=== PATIENT | female | born 1965 | race Caucasian/White ===

== ENCOUNTER → 2019-09-18 08:14 | Outpatient (BNVA) | payer MEDICAID, SELFPAY | PROVIDERS: PCP Family Medicine; Visit Provider Social Worker | DX: F43.12 Post-traumatic stress disorder, chronic (principal) | CPT/HCPCS: 90791 ==

== ENCOUNTER → 2020-03-27 08:57 | Outpatient (BNVA) | payer MEDICAID, SELFPAY | PROVIDERS: PCP Family Medicine; Visit Provider Psychiatry & Neurology Psychiatry | DX: F43.10 Post-traumatic stress disorder, unspecified (principal); F32.9 Major depressive disorder, single episode, unspecified; F41.1 Generalized anxiety disorder | CPT/HCPCS: 80061; 83036; 90792 ==

== ENCOUNTER → 2020-04-25 11:00 | Outpatient (BNVA) | payer MEDICAID, SELFPAY ==
[2020-03-28 09:31] VITALS: BP 110/72; BMI 19.3
== END ==
PROVIDERS: Visit Provider Psychiatry & Neurology Psychiatry
DX: F32.9 Major depressive disorder, single episode, unspecified (principal); F43.10 Post-traumatic stress disorder, unspecified; F41.1 Generalized anxiety disorder
CPT/HCPCS: 99213

== ENCOUNTER → 2020-07-17 12:33 | Outpatient (BNVA) | payer MEDICAID, SELFPAY ==
[2020-05-30 13:41] VITALS: BP 110/72; BMI 19.3
== END ==
PROVIDERS: Visit Provider Psychiatry & Neurology Psychiatry
DX: F32.9 Major depressive disorder, single episode, unspecified (principal); F43.10 Post-traumatic stress disorder, unspecified; F41.1 Generalized anxiety disorder
CPT/HCPCS: 99214

== ENCOUNTER → 2020-09-25 07:23 | Outpatient (BNVA) | payer MEDICAID, SELFPAY ==
[2020-05-30 13:41] VITALS: BP 110/72; BMI 19.3
== END ==
PROVIDERS: Visit Provider Psychiatry & Neurology Psychiatry
DX: F41.1 Generalized anxiety disorder (principal); F43.10 Post-traumatic stress disorder, unspecified; F32.9 Major depressive disorder, single episode, unspecified
CPT/HCPCS: 99214

== ENCOUNTER 2020-12-19 18:04 | Inpatient (IN) | payer MEDICAID, SELFPAY ==
[2020-05-30 13:41] VITALS: BP 110/72; BMI 19.3
[2020-12-19 18:09] VITALS: BP 89/56; PULSE 75; RESP 16; TEMP 36.7; O2SAT 96; BMI 21.9
--- NOTE | 2020-12-19 18:16 | CTR_ITS ---
PROCEDURE INFORMATION: Exam: CT Head Without Contrast Exam date and time: 12/19/2020 6:45 PM Age: 55 years old Clinical indication: Altered mental status/memory loss; Confusion or disorientation; Patient HX: AMS w HX of multiple strokes TECHNIQUE: Imaging protocol: Computed tomography of the head without contrast. Radiation optimization: All CT scans at this facility use at least one of these dose optimization techniques: automated exposure control; mA and/or kV adjustment per patient size (includes targeted exams where dose is matched to clinical indication); or iterative reconstruction. COMPARISON: CT head wo con* [id number] 01/25/2019 9:32 AM RADIATION DOSE METRICS: Total DLP (mGy-cm): 709.32 FINDINGS: Brain: Normal. No hemorrhage. Unremarkable white matter. No mass effect. Cerebral ventricles: No ventriculomegaly. Bones/joints: Unremarkable. No acute fracture. Paranasal sinuses: Visualized sinuses are unremarkable. No fluid levels. Mastoid air cells: Visualized mastoid air cells are well aerated. Soft tissues: Unremarkable. CT/CT head wo con* [id number] IMPRESSION: No acute intracranial abnormality. Radiation Dose CTDIVOL = (mGy): DLP = 709.32 (mGy-cm)
--- NOTE | 2020-12-19 18:17 | XRR_ITS ---
PROCEDURE INFORMATION: Exam: XR Chest Exam date and time: 12/19/2020 6:24 PM Age: 55 years old Clinical indication: Cough and dyspnea; Patient HX: PT AMS - unable to obtain HX; Additional info: Dyspnea/cough TECHNIQUE: Imaging protocol: XR of the chest. Views: 1 view. COMPARISON: CR Ribs RIGHT w PA Chest [id number] 01/11/2019 1:54 PM FINDINGS: Lungs: Unremarkable. No consolidation. Background emphysema. Pleural spaces: Unremarkable. No pleural effusion. No pneumothorax. Heart/Mediastinum: Unremarkable. No cardiomegaly. Bones/joints: Unremarkable. Intraperitoneal space: Surgical clips in the left upper quadrant. XR/XR chest 1V portable [id number] IMPRESSION: No acute findings.
--- NOTE | 2020-12-19 18:18 | ECG_ITS ---
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 Measurements Intervals [place] Rate: 57 P: 56 NE: 123 QRS: 58 QRSD: 92 T: 55 QT: 476 QTc: 467 Interpretive Statements SINUS BRADYCARDIA PROLONGED QT INTERVAL Compared to ECG 12/19/2020 19:49:35 Sinus rhythm no longer present Short NE interval no longer present Electronically Signed On 12-20-2020 16:49:15 CDT by Harley Tejeda M.D. [id number]
[2020-12-19 18:25] LABS: Basophils # 0.1 10^3/uL (0.0-0.1); Basophils % 0.8 %; Eosinophils # 0.1 10^3/uL (0.0-0.8); Eosinophils % 1.1 %; Hematocrit 36.7 % (37.0-47.0); Hemoglobin 11.4 g/dL (11.5-15.3); Lymphocytes % 32.1 %; Mean Corpuscular HGB Conc 31.1 g/dL (30.0-36.0); Mean Corpuscular Hemoglobin 29.1 pg (28.0-34.0); Mean Corpuscular Volume 93.6 fL (81-99); Mean Platelet Volume 9.3 fL (7.4-10.4); Monocytes # 0.5 10^3/uL (0.2-0.9); Monocytes % 5.7 %; Neutrophils # 5.51 10^3/uL (1.8-7.7); Nucleated Red Blood Cells % 0 %; Platelet Count 334 10^3/cmm (130-400); Red Blood Count 3.92 10^6/uL (4.1-5.3); Red Cell Distribution Width 20.1 % (12.1-15.1); White Blood Count 9.2 10^3/uL (4.0-10.0)
[2020-12-19 18:36] LABS: Ketone (Acetest) Serum Negative (Negative)
--- NOTE | 2020-12-19 18:39 | ED_ITS ---
HPI - Altered Mental Status General: Chief Complaint: Altered Mental Status Stated Complaint: ams Time Seen by Provider: 12/19/20 18:16 Source: EMS Mode of arrival: EMS Limitations: altered mental status History of Present Illness: HPI narrative: 55-year-old female who EMS was called at her chart that she had passed out there. Patient has been altered since they arrived. Here patient is unable to answer any my questions but is protecting her own airway and breathing. Speaking to friend patient does have a history of depression and friend is worried that she is taking too much of her medications. She states that she has been confused and out of it since roughly 1 today. Patient does take medical marijuana and her friend thinks she may have taken too much of this. She had a suicide attempt recently as well. Review of Systems General: Reports: ROS unobtainable due to mental status ON LICENSE OF [facility] ED PFSH: Medical History (Updated 12/19/20 @ 19:54 by Graciela Marte MD) Generalized anxiety disorder Major depressive disorder PTSD (post-traumatic stress disorder) Family History Brother Diabetes Cancer Sister Diabetes Hyperlipidemia Cancer Mother Cancer Father Cancer Social History Smoking and tobacco status: current every day smoker cigarettes Packs smoked per day: 1 Smoking risk assessment/counseling performed?: Yes Alcohol intake: current Alcohol intake frequency: few times a week Alcohol type: beer Desire information about alcohol rehabilitation?: No Counseling given: No Desire information about substance/drug rehabilitation?: No Counseling given: No Marital status: Current gender identity: Female Physical Exam Const: COMMON NORMALS: apparent distress and negative for patient oriented x3 GENERAL APPEARANCE: disheveled HENMT: COMMON NORMALS: normocephalic and atraumatic HEAD & SCALP: normocephalic and atraumatic Eye: COMMON NORMALS: Equal, round and reactive pupils present and EOMs intact bilaterally PUPIL: Yes Equal, round and reactive pupils present Neck/C-Spine: COMMON NORMALS: full ROM and supple Chest: COMMONS NORMALS: normal inspection of the chest and normal palpation of entire chest wall Resp: COMMON NORMALS: normal respiratory effort, No retractions, No use of accessory muscles and clear to auscultation bilaterally AUSCULTATION: clear to auscultation bilaterally Cardio: COMMON NORMALS: regular rate, regular rhythm and No murmurs present (Cardio) RATE: regular rate RHYTHM: regular rhythm GI: COMMON NORMALS: Normal to inspection, nondistended, normoactive bowel sounds present, Soft to palpation, non-tender and no masses PALPATION: Yes Soft to palpation Extremity: COMMON NORMALS: normal to inspection and full ROM Neuro: COMMON NORMALS: negative for patient oriented x3 Psych: APPEARANCE: Yes disheveled THOUGHT PROCESS: confused Skin: COMMON NORMALS: no rashes or lesions noted and no wounds GENERAL SKIN EXAM: no rashes or lesions noted Course Vital Signs: Vital signs: Vital Signs Temperature 98.0 F 12/19/20 18:09 Pulse Rate 75 12/19/20 18:09 Respiratory Rate 16 12/19/20 18:09 Blood Pressure 89/56 12/19/20 18:09 Pulse Oximetry 96 12/19/20 18:09 MDM - Altered Mental Status MDM Narrative: Medical decision making narrative: Patient presents here with altered mental status likely from drug abuse for marijuana. She has a normal head CT and her last known normal was 1 with no signs of acute stroke. Patient has no signs of infection at this time. I spoke to hospitalist will admit to the ICU. Lab Data: Labs: Lab Results 12/19/20 12/19/20 12/19/20 Range/Units 18:18 18:18 18:18 WBC 9.2 (4.0-10.0) 10^3/ uL RBC 3.92 L (4.1-5.3) 10^6/u L Hgb 11.4 L (11.5-15.3) g/dL Hct 36.7 L (37.0-47.0) % MCV 93.6 (81-99) fL MCH 29.1 (28.0-34.0) pg MCHC 31.1 (30.0-36.0) g/dL RDW 20.1 H (12.1-15.1) % Plt Count 334 (130-400) 10^3/c mm MPV 9.3 (7.4-10.4) fL Neut % (Auto) 60.0 % Lymph % (Auto) 32.1 % Meade % (Auto) 5.7 % Eos % (Auto) 1.1 % Baso % (Auto) 0.8 % Neut # (Auto) 5.51 (1.8-7.7) 10^3/u L Lymph # (Auto) 3.0 (0.8-4.8) 10^3/u L Meade # (Auto) 0.5 (0.2-0.9) 10^3/u L Eos # (Auto) 0.1 (0.0-0.8) 10^3/u L Baso # (Auto) 0.1 (0.0-0.1) 10^3/u L Nucleated RBC % (a uto) 0 % Nucleated RBCs # 0.0 /100WBC Specimen Type Sample Site ABG pH (7.35-7.45) ABG pCO2 (35-45) mmHg ABG pO2 (80.0-100.0) mmH g ABG HCO3 (22-26) mmol/L ABG O2 Saturation ABG Base Excess (-2.0-2.0) mmol/ L Sotero Test A-a O2 Gradient (5-10) mmHg Hematocrit (37-47) % Hgb O2 Saturation (95-100) % Carboxyhemoglobin (0.4-20.1) %THgb Methemoglobin (0.4-1.5) % Total Hemoglobin (12-16) g/dL Ionized Calcium (1.1-1.4) mmol/L O2 Delivery Device FiO2 % Desktop Support Specialist ID Sodium 138 (136-145) mmol/L Potassium 4.0 (3.5-5.1) mmol/L Chloride 101 (98-107) mmol/L Carbon Dioxide 18 L (22-29) mmol/L Anion Gap 23.0 H (5-19) BUN 27 H (6-20) mg/dL Creatinine 2.5 H (0.5-0.9) mg/dL GFR Calculation 20.0 L (90-130) mL/min Glucose 170 H (65-115) mg/dL Calculated Osmolal ity 295 (285-295) mOsm/k g Lactic Acid (0.5-2.2) mmol/L Calcium 9.3 (8.5-10.5) mg/dL Total Bilirubin 0.3 (0.15-1.2) mg/dL AST 21 (0-32) U/L ALT 14 (0-33) U/L Alkaline Phosphata se 102 (35-105) IU/L Troponin T Baselin e (0-10) ng/L Total Protein 7.7 (6.6-8.7) g/dL Albumin 4.6 (3.5-5.2) g/dL Globulin 3.1 (1.3-4.6) g/dL Lipase 141 H (13-60) U/L Serum Ketones Negative (Negative) 12/19/20 12/19/20 12/19/20 Range/Units 18:18 19:10 19:25 WBC (4.0-10.0) 10^3/ uL RBC (4.1-5.3) 10^6/u L Hgb (11.5-15.3) g/dL Hct (37.0-47.0) % MCV (81-99) fL MCH (28.0-34.0) pg MCHC (30.0-36.0) g/dL RDW (12.1-15.1) % Plt Count (130-400) 10^3/c mm MPV (7.4-10.4) fL Neut % (Auto) % Lymph % (Auto) % Meade % (Auto) % Eos % (Auto) % Baso % (Auto) % Neut # (Auto) (1.8-7.7) 10^3/u L Lymph # (Auto) (0.8-4.8) 10^3/u L Meade # (Auto) (0.2-0.9) 10^3/u L Eos # (Auto) (0.0-0.8) 10^3/u L Baso # (Auto) (0.0-0.1) 10^3/u L Nucleated RBC % (a uto) % Nucleated RBCs # /100WBC Specimen Type Arterial Sample Site Radial, right ABG pH 7.30 L (7.35-7.45) ABG pCO2 41.1 (35-45) mmHg ABG pO2 88.0 (80.0-100.0) mmH g ABG HCO3 20.3 L (22-26) mmol/L ABG O2 Saturation 95.9 ABG Base Excess -5.7 L (-2.0-2.0) mmol/ L Sotero Test Pos A-a O2 Gradient 1.5 L (5-10) mmHg Hematocrit 30.2 L (37-47) % Hgb O2 Saturation 93.4 L (95-100) % Carboxyhemoglobin 1.1 (0.4-20.1) %THgb Methemoglobin 1.4 (0.4-1.5) % Total Hemoglobin 9.9 L (12-16) g/dL Ionized Calcium 1.3 (1.1-1.4) mmol/L O2 Delivery Device None FiO2 21.0 % Desktop Support Specialist ID [id number] Sodium 141.0 (136-145) mmol/L Potassium 3.6 (3.5-5.1) mmol/L Chloride (98-107) mmol/L Carbon Dioxide (22-29) mmol/L Anion Gap (5-19) BUN (6-20) mg/dL Creatinine (0.5-0.9) mg/dL GFR Calculation (90-130) mL/min Glucose 80.0 (65-115) mg/dL Calculated Osmolal ity (285-295) mOsm/k g Lactic Acid 2.1 (0.5-2.2) mmol/L Calcium (8.5-10.5) mg/dL Total Bilirubin (0.15-1.2) mg/dL AST (0-32) U/L ALT (0-33) U/L Alkaline Phosphata se (35-105) IU/L Troponin T Baselin e 65 H (0-10) ng/L Total Protein (6.6-8.7) g/dL Albumin (3.5-5.2) g/dL Globulin (1.3-4.6) g/dL Lipase (13-60) U/L Serum Ketones (Negative) Imaging Data^: CT Head: Radiologist's impression: [address] [address] [address] Scan Report Signed Patient: Shavon Guthrie Unit #: [id number] : 1965 Age/Sex: 55 / F ADM Date: 12/19/20 Loc: ER Room/Bed: Attending Dr: Ordering Provider/Ordering MD: Colby Romero DO Date of Service: 12/19/20 Procedure(s): CT head wo con* [id number] Accession Number(s): [id number] Report Number: [id number] PROCEDURE INFORMATION: Exam: CT Head Without Contrast Exam date and time: 12/19/2020 6:45 PM Age: 55 years old Clinical indication: Altered mental status/memory loss; Confusion or disorientation; Patient HX: AMS w HX of multiple strokes TECHNIQUE: Imaging protocol: Computed tomography of the head without contrast. Radiation optimization: All CT scans at this facility use at least one of these dose optimization techniques: automated exposure control; mA and/or kV adjustment per patient size (includes targeted exams where dose is matched to clinical indication); or iterative reconstruction. COMPARISON: CT head wo con* [id number] 01/25/2019 9:32 AM RADIATION DOSE METRICS: Total DLP (mGy-cm): 709.32 FINDINGS: Brain: Normal. No hemorrhage. Unremarkable white matter. No mass effect. Cerebral ventricles: No ventriculomegaly. Bones/joints: Unremarkable. No acute fracture. Paranasal sinuses: Visualized sinuses are unremarkable. No fluid levels. Mastoid air cells: Visualized mastoid air cells are well aerated. Soft tissues: Unremarkable. CT/CT head wo con* [id number] IMPRESSION: No acute intracranial abnormality. CXR: Radiologist's impression: [address] [address] XRay Report Signed Patient: Shavon Guthrie Unit #: [id number] : 1965 Age/Sex: 55 / F ADM Date: 12/19/20 Loc: ER Room/Bed: Attending Dr: Ordering Provider/Ordering MD: Colby Romero DO Date of Service: 12/19/20 Procedure(s): XR chest 1V portable [id number] Accession Number(s): [id number] Report Number: [id number] PROCEDURE INFORMATION: Exam: XR Chest Exam date and time: 12/19/2020 6:24 PM Age: 55 years old Clinical indication: Cough and dyspnea; Patient HX: PT AMS - unable to obtain HX; Additional info: Dyspnea/cough TECHNIQUE: Imaging protocol: XR of the chest. Views: 1 view. COMPARISON: CR Ribs RIGHT w PA Chest [id number] 01/11/2019 1:54 PM FINDINGS: Lungs: Unremarkable. No consolidation. Background emphysema. Pleural spaces: Unremarkable. No pleural effusion. No pneumothorax. Heart/Mediastinum: Unremarkable. No cardiomegaly. Bones/joints: Unremarkable. Intraperitoneal space: Surgical clips in the left upper quadrant. XR/XR chest 1V portable [id number] IMPRESSION: No acute findings. EKG Data^: EKG 1: Attestation: I personally reviewed and interpreted this EKG as follows: EKG interpretation date: 12/19/20 EKG interpretation time: 19:49 Interpretation: nsr hr [address] or t wave abnormalities qrs 89 qtc 472 Critical Care Time Critical Care Time: Critical Care Time: Yes Total Critical Care Time: 36 Attestation: This case had a high probability of a clinically significant, sudden, or life threatening deterioration of this patient's condition which required my full and direct attention, intervention and personal management. Discharge Plan Discharge Patient Disposition: Admitted As Inpatient Admit Provider: Miguel Quiros Clinical Impression: Altered mental status Qualifiers: Altered mental status type: unspecified Qualified Code(s): R41.82 - Altered mental status, unspecified Condition: Stable Coding Level of Care Code ED Inbound Ingredient Logistics Specialist for Chg Fwd Exam Comprehensive
[2020-12-19 18:55] LABS: Troponin(5th) Baseline 65 ng/L (0-10)
[2020-12-19 18:57] LABS: Alanine Aminotransferase 14 U/L (0-33); Albumin Level 4.6 g/dL (3.5-5.2); Alkaline Phosphatase 102 IU/L (35-105); Aspartate Amino Transferase 21 U/L (0-32); Blood Urea Nitrogen 27 mg/dL (6-20); Calcium 9.3 mg/dL (8.5-10.5); Carbon Dioxide 18 mmol/L (22-29); Chloride 101 mmol/L (98-107); Globulin 3.1 g/dL (1.3-4.6); Glucose 170 mg/dL (65-115); Lipase 141 U/L (13-60); Osmolality Calculated 295 mOsm/kg (285-295); Sodium 138 mmol/L (136-145); Total Bilirubin 0.3 mg/dL (0.15-1.2); Total Protein 7.7 g/dL (6.6-8.7)
[2020-12-19 19:32] LABS: ABG PCO2 41.1 mmHg (35-45); Alveolar-Arterial Oxygen Gradi 1.5 mmHg (5-10); Arterial Blood Gas Hematocrit 30.2 % (37-47); Base Excess ABG -5.7 mmol/L (-2.0-2.0); Blood Gas Allen Test Pos; Blood Gas Sample Site Radial, right; Blood Gas Sample Type Arterial; Carboxyhemoglobin 1.1 %THgb (0.4-20.1); HCO3 ABG 20.3 mmol/L (22-26); HGB O2 Sat 93.4 % (95-100); Ionized Calcium Level - ABG 1.3 mmol/L (1.1-1.4); Methemoglobin 1.4 % (0.4-1.5); Oxygen Saturation ABG 95.9; Potassium Level - ABG 3.6 mmol/L (3.5-5.0); Total Hemoglobin 9.9 g/dL (12-16)
[2020-12-19 19:38] LABS: Lactic Sepsis W/Reflex 2.1 mmol/L (0.5-2.2)
--- NOTE | 2020-12-19 20:18 | ECG_ITS ---
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
--- NOTE | 2020-12-19 20:22 | PM.HP ---
Providers/Chief Complaint Admitting Physician: Miguel Quiros Primary Care Provider: Tonny Rodriguez Chief Complaint: ams History of Present Illness Shavon Guthrie is a 55 year old female with past medical history of psychiatric illness, prior suicidal attempts, prior CVA, prior overdose on different medications who was brought to emergency room due to altered mental status. According to her friend Marcie who is at the bedside the patient was at her baseline state of health until late morning when it happened. On the way out of the restaurant the patient developed sudden onset of generalized weakness and altered mental status and collapsed slowly without having any trauma. No seizures. The friend denies any focal weakness, facial asymmetry, or prior problems with speech. The patient is known to take medical marijuana. According to her friend she mostly smokes but occasionally also eats marijuana containing food. Lately the patient was in a lot of stress and was depressed according to the friend: Her 4 grandchildren which she was taking care of were taken away by the state recently. Patient did not express any suicidal intentions prior to this. Ever she has history of prior suicidal attempts. According to her friend the patient did not complain of any chest pain, palpitations, nausea or vomiting, diarrhea, rectal blood or black stool recently. In the emergency room CT of the head was unremarkable. The patient was found to have acute kidney injury and possible dehydration. She has metabolic acidosis but no lactic acid elevation. UA and urine tox are pending. EKG showed sinus with prolonged QT without any ST or T wave ischemic changes. Lipase was elevated. However there was no reports of abdominal pain or other GI complaints. Review of Systems General: Reports: ROS unobtainable due to mental status Medications/Allergies Home Medications Medication Instructions Recorded Confirmed Last Taken Type amitriptyline 10 mg tablet 10 mg PO .at bedtime tab 03/27/20 07/16/20 Unknown History amlodipine 10 mg-atorvastatin 10 1 tab PO DAILY 03/27/20 07/16/20 Unknown History mg tablet cholecalciferol (vitamin D3) 125 125 mcg PO .weekly tab 03/27/20 07/16/20 Unknown History mcg (5,000 unit) tablet montelukast 10 mg tablet 10 mg PO DAILY 03/27/20 07/16/20 Unknown History phenazopyridine 97.5 mg tablet mg PO PRN 03/27/20 07/16/20 Unknown History tramadol 50 mg tablet 50 mg PO Q6H PRN 03/27/20 07/16/20 Unknown History gabapentin 300 mg capsule 300 mg PO TID 30 Days #90 cap 09/25/20 09/25/20 Unknown Rx Allergies Allergy/AdvReac Type Severity Reaction Status Date / Time duloxetine Allergy Severe severe Verified 09/24/20 09:14 confusion benzocaine Allergy Unknown Unknown Verified 04/03/20 11:07 ibuprofen Allergy Unknown Unknown Verified 04/03/20 11:07 iodine Allergy Unknown Unknown Verified 04/03/20 11:07 milk Allergy Unknown Unknown Verified 04/03/20 11:07 povidone-iodine Allergy Unknown Unknown Verified 04/03/20 11:07 [From Betadine] soap [From Betadine] Allergy Unknown Unknown Verified 04/03/20 11:07 Sulfa (Sulfonamide Allergy Unknown Unknown Verified 04/03/20 11:07 Antibiotics) acetaminophen [From Wygesic] Allergy rash Verified 03/27/20 10:13 propoxyphene [From Wygesic] Allergy rash Verified 04/03/20 11:07 Contrast Media Allergy Unknown Unknown Uncoded 09/18/19 10:13 IPB Dye Allergy Unknown Unknown Uncoded 09/18/19 10:13 Strawberries Allergy Unknown Unknown Uncoded 09/18/19 10:13 PFSH Acute PFSH: Medical History (Updated 12/19/20 @ 19:54 by Graciela Marte MD) Generalized anxiety disorder Major depressive disorder PTSD (post-traumatic stress disorder) Family History Brother Diabetes Cancer Sister Diabetes Hyperlipidemia Cancer Mother Cancer Father Cancer Social History Smoking and tobacco status: current every day smoker cigarettes Packs smoked per day: 1 Smoking risk assessment/counseling performed?: Yes Alcohol intake: current Alcohol intake frequency: few times a week Alcohol type: beer Desire information about alcohol rehabilitation?: No Counseling given: No Desire information about substance/drug rehabilitation?: No Counseling given: No Marital status: Current gender identity: Female Vitals/I&O/Wt Last Vital Signs Temp 98.0 F 12/19/20 18:09 Pulse 75 12/19/20 18:09 Resp 16 12/19/20 18:09 BP 89/56 12/19/20 18:09 Pulse Ox 96 12/19/20 18:09 Weight last 48 hrs Weight 54.431 kg Physical Exam Narrative: EXAM NARRATIVE: The patient is lethargic and confused. Her responses are minimal. However she follows my instructions if I yell into her ear. She can open her eyes for very brief moment and to lift her head. She tends to stick her tongue out on request. 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 Pupils are slightly dilated and reactive. Unable to check her extraocular muscles. No facial asymmetry. Dry mucous membranes. No deviation of the tongue. Clear throat. Neck supple. No JVD Lungs are clear to auscultation bilaterally. No wheezes or crackles. Heart. S1, S2, regular Abdomen soft, nontender, bowel sounds are present Extremities no edema cyanosis or calf tenderness bilaterally. Unable to perform full neuro examination beyond of what is reported above. Data : 12/19/20 18:18 12/19/20 18:18 Other Labs: Laboratory Results WBC 9.2 10^3/uL (4.0-10.0) 12/19/20 18:18 RBC 3.92 10^6/uL (4.1-5.3) L 12/19/20 18:18 Hgb 11.4 g/dL (11.5-15.3) L 12/19/20 18:18 Hct 36.7 % (37.0-47.0) L 12/19/20 18:18 MCV 93.6 fL (81-99) 12/19/20 18:18 MCH 29.1 pg (28.0-34.0) 12/19/20 18:18 MCHC 31.1 g/dL (30.0-36.0) 12/19/20 18:18 RDW 20.1 % (12.1-15.1) H 12/19/20 18:18 Plt Count 334 10^3/cmm (130-400) 12/19/20 18:18 MPV 9.3 fL (7.4-10.4) 12/19/20 18:18 Neut % (Auto) 60.0 % 12/19/20 18:18 Lymph % (Auto) 32.1 % 12/19/20 18:18 [place] % (Auto) 5.7 % 12/19/20 18:18 Eos % (Auto) 1.1 % 12/19/20 18:18 Baso % (Auto) 0.8 % 12/19/20 18:18 Neut # (Auto) 5.51 10^3/uL (1.8-7.7) 12/19/20 18:18 Lymph # (Auto) 3.0 10^3/uL (0.8-4.8) 12/19/20 18:18 [place] # (Auto) 0.5 10^3/uL (0.2-0.9) 12/19/20 18:18 Eos # (Auto) 0.1 10^3/uL (0.0-0.8) 12/19/20 18:18 Baso # (Auto) 0.1 10^3/uL (0.0-0.1) 12/19/20 18:18 Nucleated RBC % (auto) 0 % 12/19/20 18:18 Nucleated RBCs # 0.0 /100WBC 12/19/20 18:18 Specimen Type Arterial 12/19/20 19:25 Sample Site Radial, right 12/19/20 19:25 ABG pH 7.30 (7.35-7.45) L 12/19/20 19:25 ABG pCO2 41.1 mmHg (35-45) 12/19/20 19:25 ABG pO2 88.0 mmHg (80.0-100.0) 12/19/20 19:25 ABG HCO3 20.3 mmol/L (22-26) L 12/19/20 19:25 ABG O2 Saturation 95.9 12/19/20 19:25 ABG Base Excess -5.7 mmol/L (-2.0-2.0) L 12/19/20 19:25 Sotero Test Pos 12/19/20 19:25 A-a O2 Gradient 1.5 mmHg (5-10) L 12/19/20 19:25 Hematocrit 30.2 % (37-47) L 12/19/20 19:25 Hgb O2 Saturation 93.4 % (95-100) L 12/19/20 19:25 Carboxyhemoglobin 1.1 %THgb (0.4-20.1) 12/19/20 19:25 Methemoglobin 1.4 % (0.4-1.5) 12/19/20 19:25 Total Hemoglobin 9.9 g/dL (12-16) L 12/19/20 19:25 Sodium 141.0 mmol/L (131-143) 12/19/20 19:25 Potassium 3.6 mmol/L (3.5-5.0) 12/19/20 19:25 Glucose 80.0 mg/dL (70-115) 12/19/20 19:25 Ionized Calcium 1.3 mmol/L (1.1-1.4) 12/19/20 19:25 O2 Delivery Device None 12/19/20 19:25 FiO2 21.0 % 12/19/20 19:25 Copy Center Specialist ID [email or web address] 12/19/20 19:25 Sodium 138 mmol/L (136-145) 12/19/20 18:18 Potassium 4.0 mmol/L (3.5-5.1) 12/19/20 18:18 Chloride 101 mmol/L (98-107) 12/19/20 18:18 Carbon Dioxide 18 mmol/L (22-29) L 12/19/20 18:18 Anion Gap 23.0 (5-19) H 12/19/20 18:18 BUN 27 mg/dL (6-20) H 12/19/20 18:18 Creatinine 2.5 mg/dL (0.5-0.9) H 12/19/20 18:18 GFR Calculation 20.0 mL/min (90-130) L 12/19/20 18:18 Glucose 170 mg/dL (65-115) H 12/19/20 18:18 Calculated Osmolality 295 mOsm/kg (285-295) 12/19/20 18:18 Lactic Acid 2.1 mmol/L (0.5-2.2) 12/19/20 19:10 Calcium 9.3 mg/dL (8.5-10.5) 12/19/20 18:18 Total Bilirubin 0.3 mg/dL (0.15-1.2) 12/19/20 18:18 AST 21 U/L (0-32) 12/19/20 18:18 ALT 14 U/L (0-33) 12/19/20 18:18 Alkaline Phosphatase 102 IU/L (35-105) 12/19/20 18:18 Troponin T Baseline 65 ng/L (0-10) H 12/19/20 18:18 Total Protein 7.7 g/dL (6.6-8.7) 12/19/20 18:18 Albumin 4.6 g/dL (3.5-5.2) 12/19/20 18:18 Globulin 3.1 g/dL (1.3-4.6) 12/19/20 18:18 Lipase 141 U/L (13-60) H 12/19/20 18:18 Serum Ketones Negative (Negative) 12/19/20 18:[address] 12/19/20 18:16 IMPRESSION: No acute intracranial abnormality. Radiation Dose CTDIVOL = (mGy): DLP = 709.32 (mGy-cm) Chest X-Ray 12/19/20 18:17 IMPRESSION: No acute findings. Micro: Microbiology 12/19/20 19:15 Blood Culture - Preliminary Blood SPECIMEN COLLECTED 12/19/20 19:10 Blood Culture - Preliminary Blood SPECIMEN COLLECTED A&P Additional A&P Information Shavon Guthrie is a 55 year old female with past medical history of psychiatric illness, prior suicidal attempts, prior CVA, prior overdose on different medications who was brought to emergency room due to altered mental status. According to her friend Marcie who is at the bedside the patient was at her baseline state of health until her syncopal episode. Acute metabolic encephalopathy. Overdose is suspected. However severe dehydration is probably contributing. CT of the head was unremarkable. Vital signs are stable. No respiratory depression at this time. The patient is being admitted to ICU for observation and close monitoring. Continue supportive care including seizure, aspiration, and suicide precautions. Continue IV fluids. Will monitor and replace electrolytes as needed. Will order thiamine replacement. Will monitor for any withdrawal symptoms. We will check her TSH. If altered mental status does not improve or if you notice any focal deficits (which are not present at this time) will consider MRI. Possible suicidal attempt. Will request psychiatry evaluation after medical stabilization. One-on-one and suicidal precautions for now. Dehydration and acute kidney injury and acute metabolic acidosis. Will hydrate with NS and monitor. Will order renal ultrasound. We will consider nephrology consultation if she does not improve promptly with IV fluids. Mild QT prolongation on EKG. Will check magnesium level. Anemia. Stable. Monitor. Hyperglycemia. We will monitor her Accu-Cheks. Elevated lipase. No abdominal pain. If she develops abdominal pain will order CT abdomen. We will recheck lipase in the morning. DVT prophylaxis. Teds and SCDs. We will start heparin tomorrow if no concerns regarding anemia after hydration. CODE STATUS. Full code for now until she wakes up and were able to interview her. The plan of care was discussed with the patient's friend. She verbalized understanding and agreement. She states that the patient has a who does not care about her and has children without much information about them. Critical care time spent on this encounter is 65 minutes Attestations Medical Necessity Statement*: The patient is being admitted to ICU due to problems listed above. I expect that the patient will spend more than 2 midnights in the hospital. Coding Level of Care Code Acute Forms Designer for Lavinia Schultz
[2020-12-19 21:04] LABS: Reflex Lactate Order REFLEX LACTIC ORDERD
[2020-12-19 21:05] LABS: Magnesium 2.2 mg/dL (1.7-2.3)
[2020-12-19 21:15] LABS: Thyroid Stimulating Hormone 0.21 uIU/mL (0.27-4.20)
[2020-12-19 22:41] LABS: Amphetamines Screen Urine Negative (Negative); Barbiturates Screen Urine Negative (Negative); Benzodiazepines Screen Urine Positive (Negative); Cocaine Screen Urine Negative (Negative); Opiate Screen Urine Negative (Negative); PCP Screen Urine Negative (Negative); THC Screen Urine Positive (Negative)
[2020-12-19] MEDS: sodium chloride 0.9% 1,000 ML 999 ML IV ×2 (22:57→23:06)
[2020-12-19] MEDS: ondansetron 2 mg/ML SDV 2 mL 4 MG IVP ×2 (22:57→23:06)
[2020-12-19 23:00] VITALS: BP 124/72; PULSE 74; RESP 16; TEMP 36.6; O2SAT 97
[2020-12-19 23:08] VITALS: BP 114/62; PULSE 65; PULSE 69; RESP 16; TEMP 36.6; O2SAT 99
--- NOTE | 2020-12-19 23:19 | PC.NURSE ---
Report given to Margaret HAMLIN. NOw transporting pt to ICU.
[2020-12-19 23:30] LABS: Add Urine Microscopic? YES; Bacteria Urine 3+ /hpf; Bilirubin Urine 1+ (Negative); Blood Urine Neg (Negative); Glucose Urine UA Norm (Normal); Ketones Urine Negative (Negative); Leukocyte Esterase Urine Negative (Negative); Nitrate Urine Negative (Negative); Protein Urine Neg (Negative); Squamous Epithelial Cell Urine 55-80 /hpf (0-5); Urine Appearance Cloudy (CLEAR); Urine Color Dark Yellow (Yellow); Urobilinogen Urine Norm (Negative); pH Urine 5 (5-7)
[2020-12-19 23:32] LABS: Add Urine Culture? No
[2020-12-19 23:34] VITALS: PULSE 71; RESP 22; O2SAT 99
[2020-12-19 23:41] VITALS: O2SAT 100
[2020-12-19] MEDS: famotidine 20 mg/2 mL INJ IVP (23:56)
[2020-12-19] MEDS: sodium chloride 0.9% 1,000 ML 150 ML IV (23:59)
[2020-12-20] VITALS (15 sets, daily range): BP systolic 97–129; BP diastolic 57–71; PULSE 56–80; RESP 13–23; TEMP 36.8–37.1; O2SAT 95–100; BMI 19.7
--- NOTE | 2020-12-20 00:18 | ECG_ITS ---
[facility] Test Date: 2020-12-20 Pat Name: Shavon Guthrie Department: Room: [facility] Gender: Female Erp Consultant: : 1965 Requested By: Colby Velez Order Number: [id number] Meryl MD: Harley Tejeda M.D. Measurements Intervals [place] Rate: 69 P: 93 WA: 117 QRS: 68 QRSD: 126 T: 60 QT: 440 QTc: 472 Interpretive Statements SINUS RHYTHM WITH SHORT WA INTERVAL MODERATE INTRAVENTRICULAR CONDUCTION DELAY [110+ ms QRS DURATION] MODERATE ST DEPRESSION [0.05+ mV ST DEPRESSION] Compared to ECG 12/19/2020 22:35:56 Short WA interval now present Intraventricular conduction delay now present ST (T wave) deviation now present Sinus bradycardia no longer present Prolonged QT interval no longer present Electronically Signed On 12-20-2020 16:50:06 CDT by Harley Tejeda M.D. [id number]
[2020-12-20 00:32] LABS: Lactic Acid level (Lactate) 1.2 mmol/L (0.5-2.2)
[2020-12-20 03:31] LABS: Troponin 5 6HR 36.08 ng/L (0-10)
[2020-12-20 12:20] LABS: Basophils # 0.1 10^3/uL (0.0-0.1); Basophils % 1.4 %; Eosinophils # 0.1 10^3/uL (0.0-0.8); Hematocrit 29.9 % (37.0-47.0); Hemoglobin 9.4 g/dL (11.5-15.3); Lymphocytes # 1.1 10^3/uL (0.8-4.8); Lymphocytes % 21.4 %; Mean Corpuscular HGB Conc 31.4 g/dL (30.0-36.0); Mean Corpuscular Hemoglobin 29.4 pg (28.0-34.0); Mean Corpuscular Volume 93.4 fL (81-99); Mean Platelet Volume 8.9 fL (7.4-10.4); Monocytes # 0.4 10^3/uL (0.2-0.9); Monocytes % 7.7 %; Neutrophils # 3.39 10^3/uL (1.8-7.7); Neutrophils % 67.3 %; Nucleated Red Blood Cells % 0 %; Platelet Count 219 10^3/cmm (130-400); Red Cell Distribution Width 19.6 % (12.1-15.1)
[2020-12-20 12:22] LABS: Glucose Point of Care 108 mg/dL (70-110)
--- NOTE | 2020-12-20 12:27 | P.PN_ITS ---
Vitals/I&O/Wt Last Vital Signs Temp 98.2 F 12/20/20 08:00 Pulse 56 L 12/20/20 08:00 Resp 18 12/20/20 08:00 BP 125/67 12/20/20 08:00 Pulse Ox 98 12/20/20 08:00 12/19/20 12/20/20 12/20/20 22:59 06:59 14:59 Intake Total 2910 / 2910 Output Total 350 / 350 Balance 2560 / 2560 Weight last 48 hrs Weight 48.988 kg Weight 54.431 kg Physical Exam Urinary Catheter Management^: Cruz: Cath Placed During This Visit: yes Reason for Continuing Indwelling Catheter: Accurate Measurement of Urinary Output in Critically Ill Patients Urinary Catheter Date of Insertion: 12/20/20 Data : 12/20/20 10:55 12/19/20 18:18 Micro: Microbiology 12/19/20 19:15 Blood Culture - Preliminary Blood SPECIMEN COLLECTED 12/19/20 19:10 Blood Culture - Preliminary Blood SPECIMEN COLLECTED Coding Level of Care Code Acute Directory Operator for Lavinia Schultz
[2020-12-20 12:33] LABS: Alanine Aminotransferase 10 U/L (0-33); Albumin Level 3.5 g/dL (3.5-5.2); Alkaline Phosphatase 81 IU/L (35-105); Anion Gap 14.6 (5-19); Aspartate Amino Transferase 13 U/L (0-32); Blood Urea Nitrogen 20 mg/dL (6-20); Calcium 8.2 mg/dL (8.5-10.5); Carbon Dioxide 20 mmol/L (22-29); Chloride 112 mmol/L (98-107); Globulin 2.4 g/dL (1.3-4.6); Glomerular Filtration Rate 46.6 mL/min (90-130); Glucose 86 mg/dL (65-115); Lipase 73 U/L (13-60); Magnesium 1.8 mg/dL (1.7-2.3); Osmolality Calculated 298 mOsm/kg (285-295); Potassium 3.6 mmol/L (3.5-5.1); Sodium 143 mmol/L (136-145); Total Bilirubin 0.2 mg/dL (0.15-1.2); Total Protein 5.9 g/dL (6.6-8.7)
[2020-12-20 13:04] LABS: Free T4 Free Thyroxine 1.51 ng/dL (0.82-1.77); T3 Free 3.1 PG/ML (2.0-4.4)
[2020-12-20] MEDS: sodium chloride 0.9% 1,000 ML 150 ML IV (13:53)
--- NOTE | 2020-12-20 15:11 | PM.DCS ---
Discharge Providers Date of Admission: 12/19/20 19:37 Date of Discharge: December 20, 2020 Attending Provider at Admission: Miguel Quiros Attending Provider at Discharge: Bridget Lozano MD Primary Care Provider: Tonny Rodriguez Reason for Visit Reason for Visit: ams Hospital Course Hospital Course Shavon Guthrie is a 55 year old female with past medical history of psychiatric illness, prior CVA, prior overdose on different medications who was brought to emergency room due to altered mental status. In the emergency room CT of the head was unremarkable. The patient was found to have acute kidney injury and dehydration. She had metabolic acidosis but no lactic acid elevation. UA was not a clean catch, urine tox was positive for benozdiazepenes and Marijuana. EKG showed sinus with prolonged QT without any ST or T wave ischemic changes. Telemetry moniroing did not reval any arrhythmias. Lipase was elevated. However there was no reports of abdominal pain or other GI complaints. Patient was drowsy when seen at night in the ER, however at time of my assessment this afternoon she is alert, awake and oriented. She denies any current complaints except for generalized bodyache. Denies any suidical ideation. Reports being under stress trying to get her grandkids and being depressed, she is already established with the [facility] per her. She does not wish for any additional psychiatry assessment at this time. Her creatinine has corrected to 1.2 today, anon gap has resolved with hydration overnight. She is being discharged today in stable condition. Cause of AMS not entirely clear but may be related to benzodiazepene use and dehydration. She is back to baseline mentation at this time. Physical Exam Narrative: EXAM NARRATIVE: GEN: Awake, alert and oriented, no acute distress CVS: S1S2 N RS: CTA B/L Abd: Soft, nt/nd , bs+ ENVIRONMENTAL PROPERTY ASSESSOR: no focal neuro deficits Urinary Catheter Management^: Cruz: Cath Placed During This Visit: yes Reason for Continuing Indwelling Catheter: Accurate Measurement of Urinary Output in Critically Ill Patients Urinary Catheter Date of Insertion: 12/20/20 Discharge Data Data Completed and Pending: Completed Studies During Hospitalization Category Date Time Status CT head wo con* [id number] Stat Cat Scan 12/19/20 18:16 Completed XR chest 1V chandler ble [id number] Stat Exams 12/19/20 18:17 Completed Pending at discharge Category Date Time Status Blood Culture Sta t Lab 12/19/20 19:15 Results US renal BI* [id number] Routine Ultrasound 12/20/20 20:14 Ordered Labs from last 24 hours 12/20/20 12/20/20 12/20/20 12:18 10:55 10:55 WBC RBC Hgb Hct MCV MCH MCHC RDW Plt Count MPV Neut % (Auto) Lymph % (Auto) [place] % (Auto) Eos % (Auto) Baso % (Auto) Neut # (Auto) Lymph # (Auto) [place] # (Auto) Eos # (Auto) Baso # (Auto) Nucleated RBC % (a uto) Nucleated RBCs # Specimen Type Sample Site ABG pH ABG pCO2 ABG pO2 ABG HCO3 ABG O2 Saturation ABG Base Excess Sotero Test A-a O2 Gradient Hematocrit Hgb O2 Saturation Carboxyhemoglobin Methemoglobin Total Hemoglobin Ionized Calcium O2 Delivery Device FiO2 Job Placement Counselor ID Sodium 143 Potassium 3.6 Chloride 112 H Carbon Dioxide 20 L Anion Gap 14.6 BUN 20 Creatinine 1.2 H GFR Calculation 46.6 L Glucose 86 POC Glucose 108 Calculated Osmolal ity 298 H Lactic Acid Lactic Acid (Sepsi s) Calcium 8.2 L Magnesium 1.8 Total Bilirubin 0.2 AST 13 ALT 10 Alkaline Phosphata se 81 Troponin T Baselin e Troponin T 120 Min grand traverse Delta Troponin T Troponin T Hi Sens 6Hr Troponin T Hi Sens 6Hr Delta Total Protein 5.9 L D Albumin 3.5 Globulin 2.4 Lipase 73 H TSH Free T4 1.51 Free T3 3.1 Urine Color Urine Appearance Urine pH Ur Specific Gravit y Urine Protein Urine Glucose (UA) Urine Ketones Urine Blood Urine Nitrate Urine Bilirubin Urine Urobilinogen Ur Leukocyte Sveta ase Urine RBC Urine WBC Ur Squamous Epith Cells Amorphous Sediment Urine Bacteria Urine Opiates Scre en Ur Barbiturates Sc reen Ur Phencyclidine S crn Ur Amphetamines Sc reen U Benzodiazepines Scrn Urine Cocaine Scre en U Marijuana (THC) Screen Serum Ketones 12/20/20 12/20/20 12/20/20 10:55 02:15 00:10 WBC 5.0 RBC 3.20 L Hgb 9.4 L Hct 29.9 L MCV 93.4 MCH 29.4 MCHC 31.4 RDW 19.6 H Plt Count 219 MPV 8.9 Neut % (Auto) 67.3 Lymph % (Auto) 21.4 [place] % (Auto) 7.7 Eos % (Auto) 2.0 Baso % (Auto) 1.4 Neut # (Auto) 3.39 Lymph # (Auto) 1.1 [place] # (Auto) 0.4 Eos # (Auto) 0.1 Baso # (Auto) 0.1 Nucleated RBC % (a uto) 0 Nucleated RBCs # 0.0 Specimen Type Sample Site ABG pH ABG pCO2 ABG pO2 ABG HCO3 ABG O2 Saturation ABG Base Excess Sotero Test A-a O2 Gradient Hematocrit Hgb O2 Saturation Carboxyhemoglobin Methemoglobin Total Hemoglobin Ionized Calcium O2 Delivery Device FiO2 Job Placement Counselor ID Sodium Potassium Chloride Carbon Dioxide Anion Gap BUN Creatinine GFR Calculation Glucose POC Glucose Calculated Osmolal ity Lactic Acid Lactic Acid (Sepsi s) 1.2 Calcium Magnesium Total Bilirubin AST ALT Alkaline Phosphata se Troponin T Baselin e Troponin T 120 Min grand traverse Delta Troponin T Troponin T Hi Sens 6Hr 36.08 H Troponin T Hi Sens 6Hr Delta -28.92 L Total Protein Albumin Globulin Lipase TSH Free T4 Free T3 Urine Color Urine Appearance Urine pH Ur Specific Gravit y Urine Protein Urine Glucose (UA) Urine Ketones Urine Blood Urine Nitrate Urine Bilirubin Urine Urobilinogen Ur Leukocyte Sveta ase Urine RBC Urine WBC Ur Squamous Epith Cells Amorphous Sediment Urine Bacteria Urine Opiates Scre en Ur Barbiturates Sc reen Ur Phencyclidine S crn Ur Amphetamines Sc reen U Benzodiazepines Scrn Urine Cocaine Scre en U Marijuana (THC) Screen Serum Ketones 12/19/20 12/19/20 12/19/20 21:28 21:28 20:35 WBC RBC Hgb Hct MCV MCH MCHC RDW Plt Count MPV Neut % (Auto) Lymph % (Auto) [place] % (Auto) Eos % (Auto) Baso % (Auto) Neut # (Auto) Lymph # (Auto) [place] # (Auto) Eos # (Auto) Baso # (Auto) Nucleated RBC % (a uto) Nucleated RBCs # Specimen Type Sample Site ABG pH ABG pCO2 ABG pO2 ABG HCO3 ABG O2 Saturation ABG Base Excess Sotero Test A-a O2 Gradient Hematocrit Hgb O2 Saturation Carboxyhemoglobin Methemoglobin Total Hemoglobin Ionized Calcium O2 Delivery Device FiO2 Job Placement Counselor ID Sodium Potassium Chloride Carbon Dioxide Anion Gap BUN Creatinine GFR Calculation Glucose POC Glucose Calculated Osmolal ity Lactic Acid Lactic Acid (Sepsi s) Calcium Magnesium 2.2 Total Bilirubin AST ALT Alkaline Phosphata se Troponin T Baselin e Troponin T 120 Min grand traverse Delta Troponin T Troponin T Hi Sens 6Hr Troponin T Hi Sens 6Hr Delta Total Protein Albumin Globulin Lipase TSH Free T4 Free T3 Urine Color Dark yellow Urine Appearance Cloudy Urine pH 5 Ur Specific Gravit y 1.020 Urine Protein Neg Urine Glucose (UA) Norm Urine Ketones Negative Urine Blood Neg Urine Nitrate Negative Urine Bilirubin 1+ H Urine Urobilinogen Norm Ur Leukocyte Sveta ase Negative Urine RBC 5-10 H Urine WBC 5-10 H Ur Squamous Epith Cells 55-80 H Amorphous Sediment Not Reportable Urine Bacteria 3+ H Urine Opiates Scre en Negative Ur Barbiturates Sc reen Negative Ur Phencyclidine S crn Negative Ur Amphetamines Sc reen Negative U Benzodiazepines Scrn Positive H Urine Cocaine Scre en Negative U Marijuana (THC) Screen Positive H Serum Ketones 12/19/20 12/19/20 12/19/20 20:35 20:35 19:25 WBC RBC Hgb Hct MCV MCH MCHC RDW Plt Count MPV Neut % (Auto) Lymph % (Auto) [place] % (Auto) Eos % (Auto) Baso % (Auto) Neut # (Auto) Lymph # (Auto) [place] # (Auto) Eos # (Auto) Baso # (Auto) Nucleated RBC % (a uto) Nucleated RBCs # Specimen Type Arterial Sample Site Radial, right ABG pH 7.30 L ABG pCO2 41.1 ABG pO2 88.0 ABG HCO3 20.3 L ABG O2 Saturation 95.9 ABG Base Excess -5.7 L Sotero Test Pos A-a O2 Gradient 1.5 L Hematocrit 30.2 L Hgb O2 Saturation 93.4 L Carboxyhemoglobin 1.1 Methemoglobin 1.4 Total Hemoglobin 9.9 L Ionized Calcium 1.3 O2 Delivery Device None FiO2 21.0 Job Placement Counselor ID [email or web address] Sodium 141.0 Potassium 3.6 Chloride Carbon Dioxide Anion Gap BUN Creatinine GFR Calculation Glucose 80.0 POC Glucose Calculated Osmolal ity Lactic Acid Lactic Acid (Sepsi s) Calcium Magnesium Total Bilirubin AST ALT Alkaline Phosphata se Troponin T Baselin e Troponin T 120 Min [place] traverse 43.50 H Delta Troponin T -21.50 L Troponin T Hi Sens 6Hr Troponin T Hi Sens 6Hr Delta Total Protein Albumin Globulin Lipase TSH 0.21 L Free T4 Free T3 Urine Color Urine Appearance Urine pH Ur Specific Gravit y Urine Protein Urine Glucose (UA) Urine Ketones Urine Blood Urine Nitrate Urine Bilirubin Urine Urobilinogen Ur Leukocyte Sveta ase Urine RBC Urine WBC Ur Squamous Epith Cells Amorphous Sediment Urine Bacteria Urine Opiates Scre en Ur Barbiturates Sc reen Ur Phencyclidine S crn Ur Amphetamines Sc reen U Benzodiazepines Scrn Urine Cocaine Scre en U Marijuana (THC) Screen Serum Ketones 12/19/20 12/19/20 12/19/20 19:10 18:18 18:18 WBC RBC Hgb Hct MCV MCH MCHC RDW Plt Count MPV Neut % (Auto) Lymph % (Auto) [place] % (Auto) Eos % (Auto) Baso % (Auto) Neut # (Auto) Lymph # (Auto) [place] # (Auto) Eos # (Auto) Baso # (Auto) Nucleated RBC % (a uto) Nucleated RBCs # Specimen Type Sample Site ABG pH ABG pCO2 ABG pO2 ABG HCO3 ABG O2 Saturation ABG Base Excess Sotero Test A-a O2 Gradient Hematocrit Hgb O2 Saturation Carboxyhemoglobin Methemoglobin Total Hemoglobin Ionized Calcium O2 Delivery Device FiO2 Job Placement Counselor ID Sodium Potassium Chloride Carbon Dioxide Anion Gap BUN Creatinine GFR Calculation Glucose POC Glucose Calculated Osmolal ity Lactic Acid 2.1 Lactic Acid (Sepsi s) Calcium Magnesium Total Bilirubin AST ALT Alkaline Phosphata se Troponin T Baselin e 65 H Troponin T 120 Min grand traverse Delta Troponin T Troponin T Hi Sens 6Hr Troponin T Hi Sens 6Hr Delta Total Protein Albumin Globulin Lipase TSH Free T4 Free T3 Urine Color Urine Appearance Urine pH Ur Specific Gravit y Urine Protein Urine Glucose (UA) Urine Ketones Urine Blood Urine Nitrate Urine Bilirubin Urine Urobilinogen Ur Leukocyte Sveta ase Urine RBC Urine WBC Ur Squamous Epith Cells Amorphous Sediment Urine Bacteria Urine Opiates Scre en Ur Barbiturates Sc reen Ur Phencyclidine S crn Ur Amphetamines Sc reen U Benzodiazepines Scrn Urine Cocaine Scre en U Marijuana (THC) Screen Serum Ketones Negative 12/19/20 12/19/20 18:18 18:18 WBC 9.2 RBC 3.92 L Hgb 11.4 L Hct 36.7 L MCV 93.6 MCH 29.1 MCHC 31.1 RDW 20.1 H Plt Count 334 MPV 9.3 Neut % (Auto) 60.0 Lymph % (Auto) 32.1 [place] % (Auto) 5.7 Eos % (Auto) 1.1 Baso % (Auto) 0.8 Neut # (Auto) 5.51 Lymph # (Auto) 3.0 [place] # (Auto) 0.5 Eos # (Auto) 0.1 Baso # (Auto) 0.1 Nucleated RBC % (a uto) 0 Nucleated RBCs # 0.0 Specimen Type Sample Site ABG pH ABG pCO2 ABG pO2 ABG HCO3 ABG O2 Saturation ABG Base Excess Sotero Test A-a O2 Gradient Hematocrit Hgb O2 Saturation Carboxyhemoglobin Methemoglobin Total Hemoglobin Ionized Calcium O2 Delivery Device FiO2 Job Placement Counselor ID Sodium 138 Potassium 4.0 Chloride 101 Carbon Dioxide 18 L Anion Gap 23.0 H BUN 27 H Creatinine 2.5 H GFR Calculation 20.0 L Glucose 170 H POC Glucose Calculated Osmolal ity 295 Lactic Acid Lactic Acid (Sepsi s) Calcium 9.3 Magnesium Total Bilirubin 0.3 AST 21 ALT 14 Alkaline Phosphata se 102 Troponin T Baselin e Troponin T 120 Min grand traverse Delta Troponin T Troponin T Hi Sens 6Hr Troponin T Hi Sens 6Hr Delta Total Protein 7.7 Albumin 4.6 Globulin 3.1 Lipase 141 H TSH Free T4 Free T3 Urine Color Urine Appearance Urine pH Ur Specific Gravit y Urine Protein Urine Glucose (UA) Urine Ketones Urine Blood Urine Nitrate Urine Bilirubin Urine Urobilinogen Ur Leukocyte Sveta ase Urine RBC Urine WBC Ur Squamous Epith Cells Amorphous Sediment Urine Bacteria Urine Opiates Scre en Ur Barbiturates Sc reen Ur Phencyclidine S crn Ur Amphetamines Sc reen U Benzodiazepines Scrn Urine Cocaine Scre en U Marijuana (THC) Screen Serum Ketones Addt'l Data from Hospital Stay: Laboratory Results WBC 5.0 10^3/uL (4.0- 10.0) 12/20/20 10:55 RBC 3.20 10^6/uL (4.1 -5.3) L 12/20/20 10:55 Hgb 9.4 g/dL (11.5-15 .3) L 12/20/20 10:55 Hct 29.9 % (37.0-47.0 ) L 12/20/20 10:55 MCV 93.4 fL (81-99) 12/20/20 10:55 MCH 29.4 pg (28.0-34. 0) 12/20/20 10:55 MCHC 31.4 g/dL (30.0-3 6.0) 12/20/20 10:55 RDW 19.6 % (12.1-15.1 ) H 12/20/20 10:55 Plt Count 219 10^3/cmm (130 -400) 12/20/20 10:55 MPV 8.9 fL (7.4-10.4) 12/20/20 10:55 Neut % (Auto) 67.3 % 12/20/20 10:55 Lymph % (Auto) 21.4 % 12/20/20 10:55 [place] % (Auto) 7.7 % 12/20/20 10:55 Eos % (Auto) 2.0 % 12/20/20 10:55 Baso % (Auto) 1.4 % 12/20/20 10:55 Neut # (Auto) 3.39 10^3/uL (1.8 -7.7) 12/20/20 10:55 Lymph # (Auto) 1.1 10^3/uL (0.8- 4.8) 12/20/20 10:55 [place] # (Auto) 0.4 10^3/uL (0.2- 0.9) 12/20/20 10:55 Eos # (Auto) 0.1 10^3/uL (0.0- 0.8) 12/20/20 10:55 Baso # (Auto) 0.1 10^3/uL (0.0- 0.1) 12/20/20 10:55 Nucleated RBC % (a uto) 0 % 12/20/20 10:55 Nucleated RBCs # 0.0 /100WBC 12/20/20 10:55 Specimen Type Arterial 12/19/20 19:25 Sample Site Radial, right 12/19/20 19:25 ABG pH 7.30 (7.35-7.45) L 12/19/20 19:25 ABG pCO2 41.1 mmHg (35-45) 12/19/20 19:25 ABG pO2 88.0 mmHg (80.0-1 00.0) 12/19/20 19:25 ABG HCO3 20.3 mmol/L (22-2 6) L 12/19/20 19:25 ABG O2 Saturation 95.9 12/19/20 19:25 ABG Base Excess -5.7 mmol/L (-2.0 -2.0) L 12/19/20 19:25 Sotero Test Pos 12/19/20 19:25 A-a O2 Gradient 1.5 mmHg (5-10) L 12/19/20 19:25 Hematocrit 30.2 % (37-47) L 12/19/20 19:25 Hgb O2 Saturation 93.4 % (95-100) L 12/19/20 19:25 Carboxyhemoglobin 1.1 %THgb (0.4-20 .1) 12/19/20 19:25 Methemoglobin 1.4 % (0.4-1.5) 12/19/20 19:25 Total Hemoglobin 9.9 g/dL (12-16) L 12/19/20 19:25 Sodium 141.0 mmol/L (131 -143) 12/19/20 19:25 Potassium 3.6 mmol/L (3.5-5 .0) 12/19/20 19:25 Glucose 80.0 mg/dL (70-11 5) 12/19/20 19:25 Ionized Calcium 1.3 mmol/L (1.1-1 .4) 12/19/20 19:25 O2 Delivery Device None 12/19/20 19:25 FiO2 21.0 % 12/19/20 19:25 Job Placement Counselor ID [email or web address] 12/19/20 19:25 Sodium 143 mmol/L (136-1 45) 12/20/20 10:55 Potassium 3.6 mmol/L (3.5-5 .1) 12/20/20 10:55 Chloride 112 mmol/L (98-10 7) H 12/20/20 10:55 Carbon Dioxide 20 mmol/L (22-29) L 12/20/20 10:55 Anion Gap 14.6 (5-19) 12/20/20 10:55 BUN 20 mg/dL (6-20) 12/20/20 10:55 Creatinine 1.2 mg/dL (0.5-0. 9) H 12/20/20 10:55 GFR Calculation 46.6 mL/min (90-1 30) L 12/20/20 10:55 Glucose 86 mg/dL (65-115) 12/20/20 10:55 POC Glucose 108 mg/dL (70-110 ) 12/20/20 12:18 Calculated Osmolal ity 298 mOsm/kg (285- 295) H 12/20/20 10:55 Lactic Acid 2.1 mmol/L (0.5-2 .2) 12/19/20 19:10 Lactic Acid (Sepsi s) 1.2 mmol/L (0.5-2 .2) 12/20/20 00:10 Calcium 8.2 mg/dL (8.5-10 .5) L 12/20/20 10:55 Magnesium 1.8 mg/dL (1.7-2. 3) 12/20/20 10:55 Total Bilirubin 0.2 mg/dL (0.15-1 .2) 12/20/20 10:55 AST 13 U/L (0-32) 12/20/20 10:55 ALT 10 U/L (0-33) 12/20/20 10:55 Alkaline Phosphata se 81 IU/L (35-105) 12/20/20 10:55 Troponin T Baselin e 65 ng/L (0-10) H 12/19/20 18:18 Troponin T 120 Min grand traverse 43.50 ng/L (0-10) H 12/19/20 20:35 Delta Troponin T -21.50 ABS# (0-10 ) L 12/19/20 20:35 Troponin T Hi Sens 6Hr 36.08 ng/L (0-10) H 12/20/20 02:15 Troponin T Hi Sens 6Hr Delta -28.92 ng/L (0-12 ) L 12/20/20 02:15 Total Protein 5.9 g/dL (6.6-8.7 ) L D 12/20/20 10:55 Albumin 3.5 g/dL (3.5-5.2 ) 12/20/20 10:55 Globulin 2.4 g/dL (1.3-4.6 ) 12/20/20 10:55 Lipase 73 U/L (13-60) H 12/20/20 10:55 TSH 0.21 uIU/mL (0.27 -4.20) L 12/19/20 20:35 Free T4 1.51 ng/dL (0.82- 1.77) 12/20/20 10:55 Free T3 3.1 PG/ML (2.0-4. 4) 12/20/20 10:55 Urine Color Dark yellow (Yel low) 12/19/20 21:28 Urine Appearance Cloudy (CLEAR) 12/19/20 21:28 Urine pH 5 (5-7) 12/19/20 21:28 Ur Specific Gravit y 1.020 (1.005-1.0 30) 12/19/20 21:28 Urine Protein Neg (Negative) 12/19/20 21: Urine Glucose (UA) Norm (Normal) 12/19/20 21: Urine Ketones Negative (Negati ve) 12/19/20 21: Urine Blood Neg (Negative) 12/19/20 21: Urine Nitrate Negative (Negati ve) 12/19/20 21: Urine Bilirubin 1+ (Negative) H 12/19/20 21: Urine Urobilinogen Norm mg/dL (Negat carmen) 12/19/20 21: Ur Leukocyte Sveta ase Negative (Negati ve) 12/19/20 21: Urine RBC 5-10 /hpf (0-2) H 12/19/20 21: Urine WBC 5-10 /hpf (0-5) H 12/19/20 21: Ur Squamous Epith Cells 55-80 /hpf (0-5) H 12/19/20 21: Amorphous Sediment Not Reportable 12/19/20 21: Urine Bacteria 3+ /hpf (NONE) H 12/19/20 21:28 Urine Opiates Scre en Negative ng/mL (N egative) 12/19/20 21:28 Ur Barbiturates Sc reen Negative ng/mL (N egative) 12/19/20 21: Ur Phencyclidine S crn Negative ng/mL (N egative) 12/19/20 21: Ur Amphetamines Sc reen Negative ng/mL (N egative) 12/19/20 21:28 U Benzodiazepines Scrn Positive ng/mL (N egative) H 12/19/20 21: Urine Cocaine Scre en Negative ng/mL (N egative) 12/19/20 21: U Marijuana (THC) Screen Positive ng/mL (N egative) H 12/19/20 21:28 Serum Ketones Negative (Negati ve) 12/19/20 18:[address] 12/19/20 18:16 IMPRESSION: No acute intracranial abnormality. Radiation Dose CTDIVOL = (mGy): DLP = 709.32 (mGy-cm) Chest X-Ray 12/19/20 18:17 IMPRESSION: No acute findings. Vitals: Last Vital Signs Temp 98.2 F 12/20/20 14:00 Pulse 80 12/20/20 14:00 Resp 18 12/20/20 14:00 BP 125/67 12/20/20 14:00 Pulse Ox 98 12/20/20 14:00 Discharge Plan Discharge Patient Disposition: Home Condition: Stable Prescriptions: Continued montelukast 10 mg tablet 10 mg PO DAILY RF: 0 tramadol 50 mg tablet 50 mg PO Q6H PRN (Reason: UNKNOWN) RF: 0 amlodipine-atorvastatin 10-10 mg tablet 1 tab PO DAILY RF: 0 cholecalciferol (vitamin D3) 125 mcg (5,000 unit) tablet 125 mcg PO Q7D RF: 0 amitriptyline 10 mg tablet 10 mg PO BEDTIME RF: 0 Urinary Pain Relief 97.5 mg tablet 97.5 mg PO DAILY PRN (Reason: UTI PAIN) RF: 0 gabapentin 300 mg capsule 300 mg PO TID 30 Days Qty: 90 RF: 3 meloxicam 15 mg Tablet 15 mg PO DAILY RF: 0 Prilosec 20 mg Capsule,Delayed Release(Dr/Ec) 20 mg PO DAILY RF: 0 duloxetine 60 mg Capsule,Delayed Release(Dr/Ec) 60 mg PO DAILY RF: 0 Nuedexta 20-10 mg Capsule 1 cap PO Q12H RF: 0 Antabuse 250 mg Tablet RF: 0 Held alprazolam 2 mg Tablet 2 mg PO BID RF: 0 Hold Instructions: until follow up with [facility] provider Discharge Orders: Discharge Order (Routine); Ordered 12/20/20 Ordered By: Bridget Lozano Referrals: Paresh Rodriguez MD [Primary Care Provider] - [facility], [Staff Physician] - Discharge Diet: Usual diet Discharge Activity: Resume usual activity Patient Instructions: Opioid Safety Discharge Attestations Time Spent in Discharge Care*: less than 30 min Quality Metrics Clinical Quality Measures During this hospital stay, did patient experience: None Coding Level of Care Code Acute Chg FW DC note
--- NOTE | 2020-12-22 18:20 | PC.RESP ---
Smoking Cessation information sent to patient.
== END 2020-12-20 16:17 | disposition home or self-care (01) | DRG 682 ==
LOC: ER 19:54 → ICU 19:58
PROVIDERS: Family Medicine; Admitting Provider Internal Medicine; Emergency Provider Emergency Medicine; PCP Family Medicine; Visit Provider Student in an Organized Health Care Education/Training Program
DX: N17.9 Acute kidney failure, unspecified (principal); G93.41 Metabolic encephalopathy; E87.2 Acidosis; E86.0 Dehydration; Z86.73 Personal history of transient ischemic attack (TIA), and cerebral infarction without residual deficits; Z91.5 Personal history of self-harm; F41.1 Generalized anxiety disorder; F32.9 Major depressive disorder, single episode, unspecified; F43.10 Post-traumatic stress disorder, unspecified; F17.210 Nicotine dependence, cigarettes, uncomplicated; R94.31 Abnormal electrocardiogram [ECG] [EKG]; R73.9 Hyperglycemia, unspecified; R41.82 Altered mental status, unspecified; T42.4X5A Adverse effect of benzodiazepines, initial encounter
CPT/HCPCS: 36415; 36416; 36600; 70450; 71045; 80051; 80053; 80306; 81001; 82009; 82330; 82805; 82962; 83605; 83690; 83735; 84439; 84443; 84481; 84484; 85025; 87040; 93005; 94664; J2405; J3411; J3490; J7030

== ENCOUNTER → 2021-02-19 08:40 | Outpatient (BNVA) | payer MEDICAID, SELFPAY ==
[2020-05-30 13:41] VITALS: BP 110/72; BMI 19.3
== END ==
PROVIDERS: PCP Family Medicine; Visit Provider Psychiatry & Neurology Psychiatry
DX: F32.9 Major depressive disorder, single episode, unspecified (principal); F43.10 Post-traumatic stress disorder, unspecified; F41.1 Generalized anxiety disorder; F10.10 Alcohol abuse, uncomplicated
CPT/HCPCS: 99214

== ENCOUNTER 2021-03-23 13:38 | Emergency (ER) | payer MEDICAID, SELFPAY ==
[2020-05-30 13:41] VITALS: BP 110/72; BMI 19.3
[2021-03-23 14:35] VITALS: BP 129/69; PULSE 71; RESP 18; TEMP 36.8; O2SAT 97; BMI 18.6
--- NOTE | 2021-03-23 14:39 | XR_ITS ---
WS: [id number] Exam: XR chest 1V portable [id number] Date/Time of Exam: 03/23/2021 2:39 PM Reason For Exam: prior pna Comparison 12/19/2020. There is a right perihilar pulmonary density. This could represent pneumonia however a mass is not ex cluded. The left lung is clear. No pleural effusions. Normal cardiomediastinal silhouette. Regional b yanet elements are intact. Bilateral apical pleural thickening. XR/XR chest 1V portable [id number] IMPRESSION: 1. Pulmonary density along the right perihilar region that could represent pneu monia. A mass is not completely excluded. Radiographic follow-up with serial ch est radiograph suggested to confirm complete resolution. If this does not occur , CT scanning of the chest with contrast may be necessary for definitive evalua tion. 2. Pulmonary hyperinflation.
[2021-03-23 23:38] LABS: Basophils # 0.1 10^3/uL (0.0-0.1); Basophils % 0.8 %; Eosinophils # 0.1 10^3/uL (0.0-0.8); Eosinophils % 0.8 %; Hematocrit 30.5 % (37.0-47.0); Hemoglobin 9.3 g/dL (11.5-15.3); Lymphocytes # 2.2 10^3/uL (0.8-4.8); Lymphocytes % 29.9 %; Mean Corpuscular HGB Conc 30.5 g/dL (30.0-36.0); Mean Corpuscular Hemoglobin 27.3 pg (28.0-34.0); Mean Corpuscular Volume 89.4 fl (81-99); Mean Platelet Volume 8.6 fL (7.4-10.4); Monocytes # 0.8 10^3/uL (0.2-0.9); Monocytes % 10.4 %; Neutrophils # 4.33 10^3/uL (1.8-7.7); Neutrophils % 57.7 %; Nucleated Red Blood Cells % 0 %; Platelet Count 282 10^3/cmm (130-400); Red Blood Count 3.41 10^6/uL (4.1-5.3); Red Cell Distribution Width 20.2 % (12.1-15.1); White Blood Count 7.5 10^3/uL (4.0-10.0)
[2021-03-23 23:44] VITALS: BP 176/121; PULSE 69; RESP 20; O2SAT 100
--- NOTE | 2021-03-23 23:44 | CTR_ITS ---
PROCEDURE INFORMATION: Exam: CT Chest Without Contrast; Diagnostic Exam date and time: 03/23/2021 11:44 PM Age: 55 years old Clinical indication: Pain; Chest pressure; Additional info: Cp TECHNIQUE: Imaging protocol: Diagnostic computed tomography of the chest without contrast. Radiation optimization: All CT scans at this facility use at least one of these dose optimization techniques: automated exposure control; mA and/or kV adjustment per patient size (includes targeted exams where dose is matched to clinical indication); or iterative reconstruction. COMPARISON: CR XR chest 1V portable [id number] 03/23/2021 3:14 PM RADIATION DOSE METRICS: Total DLP (mGy-cm): 285.63 FINDINGS: Lungs: There is a background of centrilobular emphysema. There are irregular opacities seen within the right lower lobe posterolaterally extending from the infrahilar region to the parietal pleura exhibiting some spiculations measuring approximately 1.6 x 1.9 x 5.3 cm possibly representing atelectasis and parenchymal and pleural scarring. However, a pulmonary malignancy cannot be excluded. Pleural spaces: Unremarkable. No pneumothorax. No pleural effusion. Heart: Unremarkable. No cardiomegaly. No pericardial effusion. Aorta: Unremarkable. No aortic aneurysm. Lymph nodes: Unremarkable. No enlarged lymph nodes. Gallbladder and bile ducts: Status post cholecystectomy. Bones/joints: Unremarkable. No acute fracture. Soft tissues: Unremarkable. CT/CT chest wo con [id number] IMPRESSION: 1. Background of centrilobular emphysema 2. Irregular mass seen in the right lower lobe extending from the infrahilar region to the chest wall exhibiting mild spiculations and measuring 1.6 x 1.9 x 5 3 cm. Highly suspicious. Consider non-emergent PET/CT, or tissue sampling.(Reference: Aiden) REFERENCES: Abhayhootilio H, et al. Guidelines for Management of Incidental Pulmonary Nodules Detected on CT Images: From the Fleischner Society 2017. Radiology. 2017;284(1):228-243. Radiation Dose CTDIVOL = (mGy): DLP = 285.63 (mGy-cm)
--- NOTE | 2021-03-23 23:44 | W.ED.GENADLT ---
HPI - General Adult General: Chief complaint: General Medical Stated complaint: R SIDE PAIN:PNEUMONIA 3 WKS AGO Time Seen by Provider: 03/23/21 23:32 Source: patient Mode of arrival: ambulatory Limitations: no limitations History of Present Illness: HPI narrative: 55-year-old female who was diagnosed with pneumonia 2 weeks ago. She states that she has had finishing up her antibiotics and her cough and fevers improved but she has been having severe right-sided chest pain over the last 2 days. States pain is very sharp in nature and worse with movement or palpation. States it is improved with rest. States pain is currently 6 out of 10. Denies any nausea vomiting denies any diaphoresis. Associated symptoms: Reports chest pain; Deny dyspnea, headache(s), nausea, rash or vomiting Review of Systems Const: Denies: fever(s), chills, body aches or change in appetite Eyes: Denies: blurry vision or eye discomfort ENMT: Denies: throat pain or dental pain Card: Reports: chest pain Resp: Denies: dyspnea GI: Denies: abdominal pain, nausea, vomiting or diarrhea : Denies: dysuria Musc: Denies: neck pain or back pain Skin/Breast: Denies: rash Neuro: Denies: headache(s) Psych: Denies: depression Jonas/Lymph: Denies: easy bruising All/Imm: Denies: urticaria PFSH ED PFSH: Medical History Alcohol abuse Generalized anxiety disorder Major depressive disorder Psychiatric care PTSD (post-traumatic stress disorder) Family History Brother Diabetes Cancer Sister Diabetes Hyperlipidemia Cancer Mother Cancer Father Cancer Social History Smoking and tobacco status: current every day smoker cigarettes Packs smoked per day: 1 Smoking risk assessment/counseling performed?: Yes Alcohol intake: current Alcohol intake frequency: few times a week Alcohol type: beer Desire information about alcohol rehabilitation?: No Counseling given: No Desire information about substance/drug rehabilitation?: No Counseling given: No Marital status: Current gender identity: Female Physical Exam Const: COMMON NORMALS: no acute distress, patient oriented x3 and healthy appearing HENMT: COMMON NORMALS: normocephalic and atraumatic HEAD & SCALP: normocephalic and atraumatic Eye: COMMON NORMALS: Equal, round and reactive pupils present and EOMs intact bilaterally PUPIL: Yes Equal, round and reactive pupils present Neck/C-Spine: COMMON NORMALS: full ROM and supple Chest: COMMONS NORMALS: normal inspection of the chest OTHER: point tender over right side of chest Resp: COMMON NORMALS: normal respiratory effort, No retractions, No use of accessory muscles and clear to auscultation bilaterally AUSCULTATION: clear to auscultation bilaterally Cardio: COMMON NORMALS: regular rate, regular rhythm and No murmurs present (Cardio) RATE: regular rate RHYTHM: regular rhythm GI: COMMON NORMALS: Normal to inspection, nondistended, normoactive bowel sounds present, Soft to palpation, non-tender and no masses PALPATION: Yes Soft to palpation Extremity: COMMON NORMALS: normal to inspection and full ROM Neuro: COMMON NORMALS: patient oriented x3, moves all extremities and no focal motor deficits Psych: COMMON NORMALS: mental status grossly normal, Normal thought process present and cooperative THOUGHT PROCESS: Normal thought process present Skin: COMMON NORMALS: no rashes or lesions noted and no wounds GENERAL SKIN EXAM: no rashes or lesions noted Course Vital Signs: Vital signs: Vital Signs Temperature 98.3 F 03/24/21 01:18 Pulse Rate 72 03/24/21 01:18 Respiratory Rate 18 03/24/21 01:18 Blood Pressure 137/70 03/24/21 01:18 Pulse Oximetry 100 03/24/21 01:18 MDM - General Adult MDM Narrative: Medical decision making narrative: Patient presents here with right-sided chest pain CT here showed right-sided lung mass likely causing this pain. She has no signs of blood clots or pneumonia. No signs of cardiac cause of her pain. 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 We will send her with a disc. Lab Data: Labs: Lab Results 03/23/21 03/23/21 03/23/21 Range/Units 23:16 23:16 23:54 WBC 7.5 (4.0-10.0) 10^3/ uL RBC 3.41 L (4.1-5.3) 10^6/u L Hgb 9.3 L (11.5-15.3) g/dL Hct 30.5 L (37.0-47.0) % MCV 89.4 (81-99) fl MCH 27.3 L (28.0-34.0) pg MCHC 30.5 (30.0-36.0) g/dL RDW 20.2 H (12.1-15.1) % Plt Count 282 (130-400) 10^3/c mm MPV 8.6 (7.4-10.4) fL Neut % (Auto) 57.7 % Lymph % (Auto) 29.9 % [facility] [place] [facility] % (Auto) 10.4 % Eos % (Auto) 0.8 % Baso % (Auto) 0.8 % Neut # (Auto) 4.33 (1.8-7.7) 10^3/u L Lymph # (Auto) 2.2 (0.8-4.8) 10^3/u L [facility] # (Auto) 0.8 (0.2-0.9) 10^3/u L Eos # (Auto) 0.1 (0.0-0.8) 10^3/u L Baso # (Auto) 0.1 (0.0-0.1) 10^3/u L Nucleated RBC % (a uto) 0 % Nucleated RBCs # 0.0 /100WBC Sodium 133 L (136-145) mmol/L Potassium 4.5 (3.5-5.1) mmol/L Chloride 97 L (98-107) mmol/L Carbon Dioxide 20 L (22-29) mmol/L Anion Gap 20.5 H (5-19) BUN 14 (6-20) mg/dL Creatinine 0.9 (0.5-0.9) mg/dL GFR Calculation 65.0 L (90-130) mL/min Glucose 77 (65-115) mg/dL Calculated Osmolal ity 275 L (285-295) mOsm/k g Calcium 9.5 (8.5-10.5) mg/dL Total Bilirubin 0.3 (0.15-1.2) mg/dL AST 21 (0-32) U/L ALT 20 (0-33) U/L Alkaline Phosphata se 136 H (35-105) IU/L Total Protein 7.6 (6.6-8.7) g/dL Albumin 3.7 (3.5-5.2) g/dL Globulin 3.9 (1.3-4.6) g/dL Lipase 25 (13-60) U/L Urine Color Yellow (Yellow) Urine Appearance Clear (CLEAR) Urine pH 5 (5-7) Ur Specific Gravit y 1.020 (1.005-1.030) Urine Protein Neg (Negative) Urine Glucose (UA) Norm (Normal) Urine Ketones 1+ H (Negative) Urine Blood Neg (Negative) Urine Nitrate Negative (Negative) Urine Bilirubin Neg (Negative) Urine Urobilinogen Norm (Negative) mg/dL Ur Leukocyte Sveta ase Negative (Negative) EKG Data^: EKG 1: Attestation: I personally reviewed and interpreted this EKG as follows: EKG interpretation date: 03/23/21 EKG interpretation time: 23:49 Interpretation: nsr hr [address] or t wave abnormalities qrs 88 qtc 459 Computer generated interpretation: Chest X-Ray 03/23/21 14:39 IMPRESSION: 1. Pulmonary density along the right perihilar region that could represent pneumonia. A mass is not completely excluded. Radiographic follow-up with serial chest radiograph suggested to confirm complete resolution. If this does not occur, CT scanning of the chest with contrast may be necessary for definitive evaluation. 2. Pulmonary hyperinflation. Chest CT 03/23/21 23:44 IMPRESSION: 1. Background of centrilobular emphysema 2. Irregular mass seen in the right lower lobe extending from the infrahilar region to the chest wall exhibiting mild spiculations and measuring 1.6 x 1.9 x 5 3 cm. Highly suspicious. Consider non-emergent PET/CT, or tissue sampling.(Reference: Aiden) REFERENCES: Aiden H, et al. Guidelines for Management of Incidental Pulmonary Nodules Detected on CT Images: From the Fleischner Society 2017. Radiology. 2017;284(1):228-243. Radiation Dose CTDIVOL = (mGy): DLP = 285.63 (mGy-cm) Discharge Plan Discharge Patient Disposition: Home Clinical Impression: Chest pain, Mass of lung Condition: Stable Prescriptions: New hydrocodone-acetaminophen 5-325 mg tablet 1 tab PO Q6H PRN (Reason: pain) Qty: 14 RF: 0 No Action montelukast 10 mg tablet 10 mg PO DAILY RF: 0 tramadol 50 mg tablet 50 mg PO Q6H PRN (Reason: UNKNOWN) RF: 0 amlodipine-atorvastatin 10-10 mg tablet 1 tab PO DAILY RF: 0 cholecalciferol (vitamin D3) 125 mcg (5,000 unit) tablet 125 mcg PO Q7D RF: 0 amitriptyline 10 mg tablet 10 mg PO BEDTIME RF: 0 Urinary Pain Relief 97.5 mg tablet 97.5 mg PO DAILY PRN (Reason: UTI PAIN) RF: 0 gabapentin 300 mg capsule 300 mg PO TID 30 Days Qty: 90 RF: 0 meloxicam 15 mg Tablet 15 mg PO DAILY RF: 0 omeprazole 20 mg Capsule,Delayed Release(Dr/Ec) 20 mg PO DAILY RF: 0 Nuedexta 20-10 mg Capsule 1 cap PO Q12H RF: 0 disulfiram 250 mg Tablet RF: 0 Discharge Orders: Discharge ED (Routine); Ordered 03/24/21 Ordered By: Graciela Marte Referrals: Paresh Rodriguez MD [Primary Care Provider] - Lottie Lombardi MD [Physician] - 1-3 days Discharge Diet: Advance as tolerated Discharge Activity: Resume usual activity Patient Instructions: Chest Pain (ED), Opioid Safety Coding Level of Care Code ED [place] Man for Gabrielg Fwd Exam Comprehensive
[2021-03-24 00:01] LABS: Alanine Aminotransferase 20 U/L (0-33); Albumin Level 3.7 g/dL (3.5-5.2); Alkaline Phosphatase 136 IU/L (35-105); Anion Gap 20.5 (5-19); Aspartate Amino Transferase 21 U/L (0-32); Blood Urea Nitrogen 14 mg/dL (6-20); Calcium 9.5 mg/dL (8.5-10.5); Carbon Dioxide 20 mmol/L (22-29); Chloride 97 mmol/L (98-107); Globulin 3.9 g/dL (1.3-4.6); Glucose 77 mg/dL (65-115); Lipase 25 U/L (13-60); Osmolality Calculated 275 mOsm/kg (285-295); Potassium 4.5 mmol/L (3.5-5.1); Sodium 133 mmol/L (136-145); Total Bilirubin 0.3 mg/dL (0.15-1.2); Total Protein 7.6 g/dL (6.6-8.7)
[2021-03-24 00:03] VITALS: RESP 20; O2SAT 99
[2021-03-24] MEDS: ondansetron 2 mg/ML SDV 2 mL 4 MG IVP (00:03)
[2021-03-24] MEDS: HYDROmorphone 1 mg/mL INJ 1 mL IVP (00:03)
[2021-03-24 00:10] LABS: Add Urine Microscopic? NO; Charge for UA Resulting for Rev
[2021-03-24 00:13] LABS: Bilirubin Urine Neg (Negative); Blood Urine Neg (Negative); Glucose Urine UA Norm (Normal); Ketones Urine 1+ (Negative); Leukocyte Esterase Urine Negative (Negative); Nitrate Urine Negative (Negative); Protein Urine Neg (Negative); Urine Appearance Clear (CLEAR); Urine Color Yellow (Yellow); Urobilinogen Urine Norm (Negative); pH Urine 5 (5-7)
[2021-03-24 01:18] VITALS: BP 137/70; PULSE 72; RESP 18; TEMP 36.8; O2SAT 100
--- NOTE | 2021-03-24 15:42 | DCPLANNER ---
manager of allied health services had message to schedule a follow up appointment for patient with pulmonology at [facility]. manager of allied health services spoke with patient, she stated that she has a pulomonogist that she sees, and she had an appointment today.
== END 2021-03-24 01:19 | disposition home or self-care (01) ==
PROVIDERS: Emergency Medicine; Emergency Provider Emergency Medicine; PCP Family Medicine
DX: R07.9 Chest pain, unspecified (principal); R91.8 Other nonspecific abnormal finding of lung field; F17.210 Nicotine dependence, cigarettes, uncomplicated
CPT/HCPCS: 36415; 71045; 71250; 80053; 81003; 83690; 85025; 96374; 96375; 99283; J1170; J2405

== ENCOUNTER → 2021-04-09 09:04 | Outpatient (BNVA) | payer MEDICAID, SELFPAY ==
[2020-05-30 13:41] VITALS: BP 110/72; BMI 19.3
== END ==
PROVIDERS: PCP Family Medicine; Visit Provider Psychiatry & Neurology Psychiatry
DX: F32.9 Major depressive disorder, single episode, unspecified (principal); F43.10 Post-traumatic stress disorder, unspecified; F41.1 Generalized anxiety disorder; F10.10 Alcohol abuse, uncomplicated
CPT/HCPCS: 80061; 83036; 99214

== ENCOUNTER → 2021-05-21 08:07 | Outpatient (BNVA) | payer MEDICAID, SELFPAY ==
[2021-04-10 15:24] VITALS: BP 99/57
== END ==
PROVIDERS: PCP Family Medicine; Visit Provider Psychiatry & Neurology Psychiatry
DX: F32.9 Major depressive disorder, single episode, unspecified (principal); F43.10 Post-traumatic stress disorder, unspecified; F41.1 Generalized anxiety disorder; F10.10 Alcohol abuse, uncomplicated
CPT/HCPCS: 99214

== ENCOUNTER → 2021-07-27 14:43 | Outpatient (BNVA) | payer MEDICAID, SELFPAY ==
[2021-04-10 15:24] VITALS: BP 99/57
== END ==
PROVIDERS: PCP Family Medicine; Visit Provider Nurse Practitioner Family
DX: Z20.822 Contact with and (suspected) exposure to COVID-19 (principal)
CPT/HCPCS: 87635

== ENCOUNTER → 2021-09-08 10:26 | Outpatient (BNVA) | payer MEDICAID, OTHER, SELFPAY ==
[2021-04-10 15:24] VITALS: BP 99/57
== END ==
PROVIDERS: PCP Family Medicine; Visit Provider Psychiatry & Neurology Psychiatry
DX: F32.9 Major depressive disorder, single episode, unspecified (principal); F43.10 Post-traumatic stress disorder, unspecified; F41.1 Generalized anxiety disorder; F10.10 Alcohol abuse, uncomplicated
CPT/HCPCS: 99214

== ENCOUNTER → 2021-12-01 08:28 | Outpatient (BNVA) | payer MEDICAID, SELFPAY ==
[2021-04-10 15:24] VITALS: BP 99/57
== END ==
PROVIDERS: PCP Family Medicine; Visit Provider Psychiatry & Neurology Psychiatry
DX: F32.9 Major depressive disorder, single episode, unspecified (principal); F43.10 Post-traumatic stress disorder, unspecified; F41.1 Generalized anxiety disorder; F10.10 Alcohol abuse, uncomplicated
CPT/HCPCS: 99214